=== PATIENT | male | born 2000 | race Two or more races ===

== ENCOUNTER → 2024-06-01 | Outpatient (CLI) | payer BC, SELFPAY ==
--- NOTE | 2024-06-01 12:00 | XR_ITS ---
Examination: Testicular sonography complete Technique: Grayscale sonographic images testes, assessment arterial inflow venous outflow, Doppler spectral analysis carful analysis Exam date and time: June 01, 2024 1146 hrs. Indications: Bilateral testicular pain beginning 2 weeks ago Findings: Right testis 4.0 cm epididymis 0.8 cm Arterial flow testicle. Testicular mass not seen Left testis 4.1 cm epididymis 1.3 cm 3 mm left epididymal cyst Arterial flow testicle no testicular mass Minimal hydrocele Impression: No testicular torsion or testicular mass
== END | disposition home or self-care (01) ==
LOC: CDIM 11:34
PROVIDERS: PCP Family Medicine
DX: N50.82 Scrotal pain (principal)
CPT/HCPCS: 76870